=== PATIENT | female | born 1945 | race African-American/Black ===

== ENCOUNTER 2023-08-24 04:15 | Inpatient (IN) | payer MEDICARE ==
[~2023-08-24] VITALS: Ht 157.5 cm; Wt 87.4 kg
[2023-08-24] VITALS (8 sets, daily range): BP systolic 159; BP diastolic 64; PULSE 80–104; RESP 12–22; TEMP 98.1; O2SAT 93–100
[2023-08-24] MEDS: IPRATROPIUM BROM 0.5 MG/2.5ML INH SOL NEB ONE ×2 (04:44→05:08)
[2023-08-24] MEDS: ALBUTEROL SULF 2.5 MG/0.5ML(0.5%) NEB SOLN NEB ONE ×2 (04:44→05:09)
[2023-08-24] MEDS ORDERED: methylPREDNISolone SOD SUCC 125 MG/2 ML VL IV ONE (04:45)
[2023-08-24] MEDS ORDERED: ALBUTEROL SULF 2.5 MG/0.5ML(0.5%) NEB SOLN NEB ONE (04:45)
[2023-08-24] MEDS ORDERED: IPRATROPIUM BROM 0.5 MG/2.5ML INH SOL NEB ONE (04:45)
[2023-08-24] MEDS ORDERED: FUROSEMIDE 40 MG/4 ML VIAL IV ONE (05:15)
[2023-08-24] MEDS ORDERED: levoFLOXacin 250 MG TAB PO ONE (05:15)
[2023-08-24 05:32] LABS: Basophils # (auto) 0 10 ^3/uL (0-0.2); Basophils % (auto) 0.4 % (0.0-2.0); Eosinophils # (auto) 0.3 10 ^3/uL (0-0.8); Eosinophils % (auto) 3.6 % (0.0-7.0); Hematocrit 41.6 % (36.0-46.0); Hemoglobin 13.5 g/dL (12.2-16.2); Lymphocytes # (auto) 1.4 10 ^3/uL (0.4-5.4); Lymphocytes % (auto) 19.2 % (10.0-50.0); Mean Corpuscular Hemoglobin 27.1 pg (28.0-32.0); Mean Corpuscular Hgb Conc. 32.4 g/dL (32.0-36.0); Mean Corpuscular Volume 83.6 fL (80.0-100.0); Monocytes # (auto) 0.6 10 ^3/uL (0-1.3); Monocytes % (auto) 8.8 % (0.0-12.0); Neutrophils # (auto) 4.8 10 ^3/uL (1.6-8.6); Nucleated Red Blood Cells % 0.1 %; Red Blood Cells 4.98 10^6/uL (4.0-5.20); Red Cell Distribution Width 14.2 % (11.8-14.3); White Blood Cell 7.1 10^3/uL (4.4-10.8)
[2023-08-24 05:42] LABS: Alanine Aminotransferase 30 U/L (7-40); Albumin 3.8 g/dL (3.2-4.8); Alkaline Phosphatase 76 U/L (46-116); Anion Gap 6 (5-15); Aspartate Aminotransferase 35 U/L (13-40); BUN/Creatinine Ratio 15.2 (10.0-20.0); Bilirubin, Total 0.5 mg/dL (0.2-1.0); Blood Urea Nitrogen 10 mg/dL (9-23); Calcium 8.2 mg/dL (8.7-10.4); Carbon Dioxide 30 mmol/L (20-30); Chloride 90 mmol/L (98-107); Glucose 112 mg/dL (74-106); INR 0.95 (0.9-1.15); Partial Thromboplastin Time 28.1 SEC (24.5-34.5); Potassium 3.3 mmol/L (3.5-5.1); Sodium 126 mmol/L (136-145)
[2023-08-24 11:49] LABS: Base Excess 8.2 mmol/L (-2.0-2.0)
[2023-08-24] MEDS: ENOXAPARIN SOD 40 MG/0.4 ML SYRINGE SC SCH (12:25)
[2023-08-24] MEDS: DOXYCYCLINE 100MG/250ML 250 ML IV SCH (12:30)
[2023-08-24] MEDS: LEVALBUTEROL HCL 1.25 MG/3 ML NEB NEB SCH ×2 (13:14→19:24)
[2023-08-24] MEDS: IPRATROPIUM BROM 0.5 MG/2.5ML INH SOL NEB SCH ×2 (13:15→19:24)
[2023-08-24] MEDS ORDERED: ASPirin 325 MG TAB PO ONE (16:45)
[2023-08-24] MEDS ORDERED: CLOPIDOGREL 300 MG TAB PO ONE (16:45)
[2023-08-24] MEDS ORDERED: MORPHINE SULFATE INJ 2 MG/ml SYRG IV PRN (17:00)
[2023-08-24] MEDS ORDERED: NITROGLYCERIN 0.4 MG SL TAB SL PRN (17:00)
[2023-08-24] MEDS: ATORVASTATIN 20 MG TAB PO SCH (22:10)
[2023-08-24] MEDS: METOPROLOL TARTRATE 25 MG TAB PO SCH (22:10)
[2023-08-24] MEDS: FUROSEMIDE 20 MG/2 ML VIAL IV SCH (22:11)
[2023-08-25] VITALS (14 sets, daily range): BP systolic 110–144; BP diastolic 48–80; PULSE 62–110; RESP 16–21; TEMP 97.8–98.7; O2SAT 92–100
[2023-08-25] MEDS: DOXYCYCLINE 100MG/250ML 250 ML IV SCH ×2 (01:07→13:09)
[2023-08-25 04:33] LABS: Rapid Influenza A Negative (Negative); Rapid Influenza B Negative (Negative)
[2023-08-25 04:34] LABS: COVID19 ANTIGEN SOFIA FIA NEGATIVE (NEGATIVE)
[2023-08-25 05:27] LABS: Basophils # (auto) 0 10 ^3/uL (0-0.2); Eosinophils # (auto) 0 10 ^3/uL (0-0.8); Hemoglobin 13.6 g/dL (12.2-16.2); Neutrophils # (auto) 6.2 10 ^3/uL (1.6-8.6); Nucleated Red Blood Cells % 0.1 %
[2023-08-25 05:30] LABS: Basophils % (auto) 0.1 % (0.0-2.0); Hematocrit 42.1 % (36.0-46.0); Lymphocytes # (auto) 0.9 10 ^3/uL (0.4-5.4); Lymphocytes % (auto) 10.9 % (10.0-50.0); Mean Corpuscular Hemoglobin 27.2 pg (28.0-32.0); Mean Corpuscular Hgb Conc. 32.3 g/dL (32.0-36.0); Monocytes # (auto) 0.7 10 ^3/uL (0-1.3); Monocytes % (auto) 9.5 % (0.0-12.0); Neutrophils % (auto) 79.5 % (37.0-80.0); Red Blood Cells 5.01 10^6/uL (4.0-5.20); Red Cell Distribution Width 14.1 % (11.8-14.3); White Blood Cell 7.9 10^3/uL (4.4-10.8)
[2023-08-25] MEDS ORDERED: POTA10TA51 PO (05:46)
[2023-08-25] MEDS ORDERED: ASPI81CH59 PO (05:46)
[2023-08-25] MEDS ORDERED: HYDR25TA5 PO (05:46)
[2023-08-25] MEDS ORDERED: LEVO112T4 PO (05:46)
[2023-08-25] MEDS ORDERED: ATEN-60 PO (05:46)
[2023-08-25 05:53] LABS: Chloride 93 mmol/L (98-107); Potassium 3.8 mmol/L (3.5-5.1)
[2023-08-25 05:54] LABS: Anion Gap 4 (5-15); Calcium 8.8 mg/dL (8.5-10.1); Carbon Dioxide 34 mmol/L (20-30); Sodium 131 mmol/L (136-145)
[2023-08-25 07:36] LABS: Alanine Aminotransferase 27 U/L (7-40); Albumin 3.8 g/dL (3.2-4.8); Alkaline Phosphatase 72 U/L (46-116); Aspartate Aminotransferase 30 U/L (13-40); Bilirubin, Total 0.3 mg/dL (0.2-1.0); Blood Urea Nitrogen 12 mg/dL (9-23); Cholesterol 192 mg/dL (< 200); Glucose 112 mg/dL (74-106); Total Protein 6.9 g/dL (5.7-8.2)
[2023-08-25 07:37] LABS: HDL Cholesterol 60 mg/dL (40-59); LDL Cholesterol 116 mg/dL (< 100); Triglycerides 72 mg/dL (< 150)
[2023-08-25] MEDS: LEVALBUTEROL HCL 1.25 MG/3 ML NEB NEB SCH ×4 (07:40→18:52)
[2023-08-25] MEDS: IPRATROPIUM BROM 0.5 MG/2.5ML INH SOL NEB SCH ×4 (07:52→18:51)
[2023-08-25 08:08] LABS: Magnesium 2.1 mg/dL (1.6-2.6)
[2023-08-25] MEDS: ASPirin 81 mg TAB PO SCH (08:34)
[2023-08-25] MEDS: FUROSEMIDE 20 MG/2 ML VIAL IV SCH ×2 (08:34→21:41)
[2023-08-25] MEDS: METOPROLOL TARTRATE 25 MG TAB PO SCH ×2 (08:35→21:41)
[2023-08-25] MEDS: CLOPIDOGREL BISULFATE 75 MG TAB PO SCH (08:35)
[2023-08-25] MEDS: ENOXAPARIN SOD 40 MG/0.4 ML SYRINGE SC SCH (08:35)
[2023-08-25] MEDS ORDERED: levoFLOXacin 500MG 100 ML IV SCH (10:00)
[2023-08-25 12:30] LABS: Partial Thromboplastin Time 27.1 SEC (24.5-34.5); Prothrombin Time 10.5 sec (9.3-11.8)
[2023-08-25] MEDS: ATORVASTATIN 20 MG TAB PO SCH (21:41)
[2023-08-26] VITALS (19 sets, daily range): BP systolic 118–162; BP diastolic 50–72; PULSE 62–140; RESP 13–56; TEMP 98–98.9; O2SAT 90–99
[2023-08-26] MEDS: DOXYCYCLINE 100MG/250ML 250 ML IV SCH ×2 (00:05→15:55)
[2023-08-26] MEDS: IPRATROPIUM BROM 0.5 MG/2.5ML INH SOL NEB SCH ×5 (00:21→23:01)
[2023-08-26] MEDS: LEVALBUTEROL HCL 1.25 MG/3 ML NEB NEB SCH ×5 (00:22→23:01)
[2023-08-26] MEDS: METOPROLOL TARTRATE 25 MG TAB PO SCH ×2 (11:23→21:37)
[2023-08-26] MEDS: ASPirin 81 mg TAB PO SCH (11:23)
[2023-08-26] MEDS: CLOPIDOGREL BISULFATE 75 MG TAB PO SCH (11:24)
[2023-08-26] MEDS: FUROSEMIDE 20 MG/2 ML VIAL IV SCH ×2 (11:24→21:37)
[2023-08-26] MEDS: ENOXAPARIN SOD 40 MG/0.4 ML SYRINGE SC SCH (11:24)
[2023-08-26] MEDS ORDERED: ANGIOMAX 250 MG VIAL IV ONE (12:10)
[2023-08-26] MEDS ORDERED: HEPARIN SODIUM (PORCINE) 5000 UNITS/ML 1ML VIAL ONE (12:10)
[2023-08-26] MEDS ORDERED: MIDAZOLAM HCL 2MG/2ML 2ml VIAL (1mg/ml) ONE (12:11)
[2023-08-26] MEDS ORDERED: SODIUM CHL 0.9% 0 ML ONE (12:11)
[2023-08-26] MEDS ORDERED: VERAPAMIL 2.5MG/ML INJ 2ML VIAL IV ONE (12:11)
[2023-08-26] MEDS ORDERED: LIDOCAINE 2%HCL (LOCAL ANESTH.) INJ 20ML MDV ONE (12:11)
[2023-08-26] MEDS ORDERED: fentaNYL CITRATE 100 MCG/2 ML VL ONE (12:11)
[2023-08-26] MEDS ORDERED: IODIXANOL 320MG/ML 100ML BTL IV ONE (12:12)
[2023-08-26] MEDS ORDERED: cefTRIAXone 1GM/50ML D5W 50 ML IV ONE (20:00)
[2023-08-26] MEDS: DOXYCYCLINE 100 MG TAB/CAP PO SCH (21:27)
[2023-08-26] MEDS: ATORVASTATIN 20 MG TAB PO SCH (21:28)
[2023-08-27] VITALS (12 sets, daily range): BP systolic 117–146; BP diastolic 47–77; PULSE 70–91; RESP 16–20; TEMP 98.2–98.8; O2SAT 91–100
[2023-08-27] MEDS: IPRATROPIUM BROM 0.5 MG/2.5ML INH SOL NEB SCH ×2 (06:41→12:50)
[2023-08-27] MEDS: LEVALBUTEROL HCL 1.25 MG/3 ML NEB NEB SCH ×2 (06:42→12:50)
[2023-08-27] MEDS ORDERED: cefTRIAXone 1GM/50ML D5W 50 ML IV SCH (09:00)
[2023-08-27] MEDS: ASPirin 81 mg TAB PO SCH (09:36)
[2023-08-27] MEDS: METOPROLOL TARTRATE 25 MG TAB PO SCH (09:37)
[2023-08-27] MEDS: DOXYCYCLINE 100 MG TAB/CAP PO SCH (09:37)
[2023-08-27] MEDS: CLOPIDOGREL BISULFATE 75 MG TAB PO SCH (09:37)
[2023-08-27] MEDS: ENOXAPARIN SOD 40 MG/0.4 ML SYRINGE SC SCH (10:36)
[2023-08-27] MEDS: FUROSEMIDE 20 MG/2 ML VIAL IV SCH (10:37)
== END 2023-08-27 16:08 | disposition home or self-care (01) | DRG 286 ==
LOC: ER 04:15 → TELE 11:10 → TELE-WESTW 08-25 04:27
PROVIDERS: ADMIT Nurse Practitioner Family; ATTEND Family Medicine
PROC: 4A023N7 Measurement of Cardiac Sampling and Pressure, Left Heart, Percutaneous Approach (ICD-10-PCS; principal; 2023-08-26)
PROC: B211YZZ Fluoroscopy of Multiple Coronary Arteries using Other Contrast (ICD-10-PCS; 2023-08-26)
PROC: B215YZZ Fluoroscopy of Left Heart using Other Contrast (ICD-10-PCS; 2023-08-26)
DX: I11.0 Hypertensive heart disease with heart failure (principal); I50.33 Acute on chronic diastolic (congestive) heart failure; J18.9 Pneumonia, unspecified organism; J96.01 Acute respiratory failure with hypoxia; E87.1 Hypo-osmolality and hyponatremia; Z20.822 Contact with and (suspected) exposure to COVID-19; E66.01 Morbid (severe) obesity due to excess calories; E87.6 Hypokalemia; E03.9 Hypothyroidism, unspecified; E78.00 Pure hypercholesterolemia, unspecified; Z68.35 Body mass index [BMI] 35.0-35.9, adult; Z88.0 Allergy status to penicillin; Z90.49 Acquired absence of other specified parts of digestive tract
CPT/HCPCS: 36415; 36600; 71045; 80053; 80061; 82805; 83036; 83735; 83880; 83930; 84443; 84484; 85025; 85610; 85730; 86850; 86900; 86901; 87426; 87804; 93005; 93306; 93458; 94640; 96374; 96375; 99152; G0378; J2250; J3490; Q9967